=== PATIENT | male | born 2000 | race Caucasian/White ===

== ENCOUNTER 2025-02-10 01:17 | Emergency (ER) | payer MEDICAID, MEDICARE ==
[2025-02-10] MEDS ORDERED: Sodium Chloride 0.9% 10 ML Syringe FLUSH PRN (01:35)
[2025-02-10 01:51] LABS: BASE EXCESS ARTERIAL,POC 2 mmol/L (-2 - 3+); HCO3 ARTERIAL,POC 27 mmol/L (21-28); O2 SATURATION ARTERIAL,POC 99.9 % (94-98); PO2 ARTERIAL,POC 259 mmHg (83-108)
[2025-02-10 01:51] LABS: BLOOD UREA NITROGEN,BUN 8 mg/dL (7-18); CARBON DIOXIDE,CO2 27 mmol/L (21-32); CHLORIDE,CL 102 mmol/L (100-110); CREATININE 1.1 mg/dL (0.70-1.30); EST CRCL DRUG DOSING (CG) 120.39 mL/min; ESTIMATED GFR 96 mL/min (>60); GLUCOSE RANDOM 129 mg/dL (80-116); POTASSIUM,K 3.6 mmol/L (3.5-5.3); SODIUM,NA 139 mmol/L (135-145)
[2025-02-10] MEDS: Ondansetron 4 MG/2 ML SDV IVPUSH PRN (01:52)
[2025-02-10] MEDS: Ketorolac 30 MG/ML SDV IVPUSH PRN (01:52)
[2025-02-10 01:57] LABS: BASOPHILS ABSOLUTE AUTO 0.1 x10-3/uL (0.0-0.3); BASOPHILS PERCENT AUTO 0.6 % (0.3-3.8); EOSINOPHILS ABSOLUTE AUTO 0.2 x10-3/uL (0.0-0.6); EOSINOPHILS PERCENT AUTO 1.6 % (0.1-6.8); LYMPHOCYTES ABSOLUTE AUTO 2.8 x10-3/uL (0.5-4.5); LYMPHOCYTES PERCENT AUTO 28.0 % (15.8-45.3); MEAN PLATELET VOLUME 7.9 fL (6.7-11.0); MONOCYTES ABSOLUTE AUTO 0.5 x10-3/uL (0.0-1.2); MONOCYTES PERCENT AUTO 5.4 % (5.5-15.2); NEUTROPHILS ABSOLUTE AUTO 6.5 x10-3/uL (1.7-6.9); NEUTROPHILS PERCENT AUTO 64.4 % (40.3-71.8); PLATELET COUNT,PLT 308 x10(3)uL (117-477); RED BLOOD CELL COUNT 4.95 x10(6)uL (3.90-5.90); RED CELL DISTRIBUTION WIDTH 13.5 % (12.4-15.0); WHITE BLOOD CELL COUNT,WBC 10.0 x10-3/uL (3.2-10.1)
[2025-02-10 02:06] LABS: A/G RATIO 1.2; ALANINE AMINOTRANSFERASE,ALT 61 U/L (12-36); ASPARTATE AMNIOTRANSFERASE,AST 22 IU/L (5-25); BILIRUBIN TOTAL 0.2 mg/dL (0.1-1.3); PROTEIN TOTAL,TP 6.7 g/dL (6.0-8.0)
== END 2025-02-10 03:26 | disposition home or self-care (01) ==
LOC: FB.ED 01:17
DX: Z77.098 Contact with and (suspected) exposure to other hazardous, chiefly nonmedicinal, chemicals (principal); E86.0 Dehydration
CPT/HCPCS: 36415; 71045; 80053; 82803; 83605; 84484; 85025; 93005; 93010; 96361; 96374; 96375; 99284; 99285; J1885; J2405; J7030